=== PATIENT | male | born 1955 | race Caucasian/White ===

== ENCOUNTER 2021-03-22 17:11 | Emergency (ER) | payer SELFPAY ==
[~2021-03-22] VITALS: Ht 170.2 cm; Wt 91.5 kg
[2021-03-22 17:16] VITALS: BP 143/71
--- NOTE | 2021-03-22 20:36 | NUR ---
PT CALLED FOR ROOM. NA X 1
--- NOTE | 2021-03-22 20:57 | NUR ---
NA X 2
--- NOTE | 2021-03-22 21:21 | NUR ---
NA X 3
== END 2021-03-22 21:23 | disposition left against medical advice (07) ==
LOC: ED 17:16
DX: R11.0 Nausea (principal); Z53.21 Procedure and treatment not carried out due to patient leaving prior to being seen by health care provider